=== PATIENT | female | born 1985 | race Caucasian/White ===

== ENCOUNTER 2020-07-27 23:48 | Inpatient (IN) | payer OTHER ==
[~2020-07-27] VITALS: Ht 165.1 cm; Wt 40.0 kg
[~2020-07-27 23:48] MED LIST: ALBUTEROL INH; ERY-TAB500 MG PO; IBUPROFEN 800800 M1 PO
[2020-07-27 23:50] VITALS: BP 134/87
[2020-07-28] VITALS (38 sets, daily range): BP systolic 101–158; BP diastolic 60–106
[2020-07-28 00:17] LABS: BE(vivo) -8.8 mmol/L (-2 to +3); HCO3 17.6 mmol/L (22.0-26.0); PCO2 VENOUS 39.5 mmHg (41.0-51.0); PO2 VENOUS 38.6 mmHg (35.0-45.0)
[2020-07-28 00:50] LABS: URINE BILIRUBIN NEGATIVE (Negative); URINE BLOOD 3+ (Negative); URINE CLARITY SL CLOUDY; URINE COLOR YELLOW; URINE GLUCOSE-RANDOM* 3+ (Negative); URINE KETONES 2+ (Negative); URINE LEUKOCYTES-REFLEX NEGATIVE (Negative); URINE PROTEIN (DIPSTICK) 1+ (Negative); URINE UROBILINOGEN 0.2 E.U./dl (0.2-1.0)
[2020-07-28 00:52] LABS: ABSOLUTE NEUTROPHILS 13.5 thou/uL (1.4-8.2); BASOPHILS 0.4 % (0.0-2.0); HEMATOCRIT 47.8 % (37.0-47.0); HEMOGLOBIN 15.6 gm/dL (12.0-15.0); LYMPHOCYTES 10.2 % (24.0-44.0); MCH 31.5 pg (26.0-34.0); MCHC 32.7 g/dL (28.0-37.0); MCV 96.3 fL (80.0-100.0); MONOCYTES 5.3 % (1.0-8.0); PLATELET COUNT 609 thou/uL (150-400); POLYS 84.1 % (36.0-66.0); RBC 4.96 mil/uL (4.20-5.00); RDW 13.6 % (10.5-14.5)
[2020-07-28 00:52] LABS: URINE NITRITE-REFLEX POSITIVE (Negative)
[2020-07-28 01:00] LABS: AMP/METHAMP POSITIVE (Negative); BARBITURATES Negative (Negative); BENZODIAZEPINES Negative (Negative); CASTS None Seen /LPF (None Seen); COCAINE Negative (Negative); CRYSTALS None Seen /LPF (None Seen); METHADONE Negative (Negative); MUCUS 4-6 Moderate strn/LPF (None Seen); OPIATES Negative (Negative); PCP Negative (Negative); SQUAMOUS 0-3 Few /LPF (0-3); URINE RBC 3-10 Few /HPF (0-2); URINE WBC-REFLEX 0-5 Rare /HPF (0-5)
[2020-07-28 01:01] LABS: ANION GAP 26 mmol/L (7-16); BUN 36 mg/dL (7-18); CALCIUM 11.4 mg/dL (8.5-10.1); CHLORIDE 99 mmol/L (98-107); CO2 19 mmol/L (21-32); CREATININE 1.6 mg/dL (0.6-1.0); POTASSIUM 3.8 mmol/L (3.5-5.1); SODIUM 144 mmol/L (136-145)
[2020-07-28 01:09] LABS: ALBUMIN 3.5 g/dL (3.4-5.0); AMYLASE 16 U/L (25-115); DIRECT BILIRUBIN 0.1 mg/dL (<0.1-0.2); GLUCOSE 977 mg/dL (74-106); LIPASE 71 U/L (73-393); MAGNESIUM 3.1 mg/dL (1.8-2.4); PHOSPHORUS 4.7 mg/dL (2.5-4.9); SGOT 33 U/L (15-37); SGPT 34 U/L (30-65); TOTAL BILIRUBIN 0.7 mg/dL (0.2-1.0); TOTAL PROTEIN 9.4 g/dL (6.4-8.2); TROPONIN-I <0.06 ng/mL (<0.06)
[2020-07-28 01:22] LABS: SALICYLATE 6.9 mg/dL (2.8-20.0)
--- NOTE | 2020-07-28 04:03 | NUR ---
"FRIEND" CALLED TO INQUIRE ABOUT PATIENT STATUS AND IF HE COULD BRING PATIENT ANYTHING. BRANDY PURCELL, IS FRIEND'S NAME. FRIEND WAS TOLD THAT PATIENT IS NOT IN ANY CONDIITON TO HOLD A CONVERSATION AT THIS TIME. AND HE COULD NOT BRING ANYTHING FOR THE PATIENT AT THIS TIME. ADVISED THAT ONCE PATIENT CAN SPEAK FOR HERSELF AND DESIGNATE HER ONE VISITOR DURING HER STAY, SHE WILL CALL AND LET THAT INDIVIDUAL KNOW. OTHERWISE, NO OTHER INFORMATION COULD BE DISCLOSED AT THIS TIME. BRANDY PURCELL (FRIEND): [phone] QUINTON GARCIA (FRIEND): [phone]
[2020-07-28 04:38] LABS: ALBUMIN 2.9 g/dL (3.4-5.0); CREATININE 1.2 mg/dL (0.6-1.0); MAGNESIUM 2.6 mg/dL (1.8-2.4); POTASSIUM 3.1 mmol/L (3.5-5.1)
[2020-07-28 04:44] LABS: CALCIUM 9.3 mg/dL (8.5-10.1)
--- NOTE | 2020-07-28 05:44 | NUR ---
ASSUMED CARE OF PATIENT FROM ER. PATIENT IN DKA, AMS, UNABLE TO PARTICIPATE IN ADMISSION QUESTIONS. NO FAMILY OR FRIENDS WITH HER IN ER. DKA PROTOCOL INTIATED, JANIE ROBBINS STOREPERSON CALLED WITH ABNORMAL VALUES, ORDERS RECEIVED. PATIENT REMAINS CONFUSED, GAP NOT CLOSED, HOURLY BLOOD SUGAR MONITORING. NOT PROGRESSING TOWARDS POC GOALS.
--- NOTE | 2020-07-28 07:17 | EKG ---
[address] [place] [address] ELECTROCARDIOGRAM REPORT Name: SALOMON AQUINO Room #: 246-P ADM IN M.R.#: [id number] Admission: 07/28/20 Attend Phys: Wilberto Hodge MD Discharge: Date of : 89 Report #: [id number] [facility] ED Test Date: 2020-07-28 Test Time: 00:10:02 Pat Name: SALOMON AQUINO Department: Room: 246 Gender: F Controls Designer: : 1985 Requested By: Dion Saenz Order Number: [id number] MD: Wing Maher Measurements Intervals [place] Rate: 102 P: 88 MN: 195 QRS: 89 QRSD: 68 T: -75 QT: 407 QTc: 531 Interpretive Statements Sinus tachycardia Biatrial enlargement Borderline repolarization abnormality Prolonged QT interval Baseline wander in lead(s) V1,V3,V4,V5 No previous ECG available for comparison Electronically Signed On 07-28-2020 7:17:08 [employer]PER[employer] by Wing Maher [email or web address] <ELECTRONICALLY SIGNED> By: Wing Maher MD, [facility] 07/28/20 0717 Wing Maher MD, [facility] /EPI
[2020-07-28 09:50] LABS: ALBUMIN 2.9 g/dL (3.4-5.0); CALCIUM 9.6 mg/dL (8.5-10.1); CREATININE 1.1 mg/dL (0.6-1.0); MAGNESIUM 2.5 mg/dL (1.8-2.4); PHOSPHORUS 1.9 mg/dL (2.5-4.9); POTASSIUM 3.1 mmol/L (3.5-5.1)
[2020-07-28 13:48] LABS: ALBUMIN 2.4 g/dL (3.4-5.0); CALCIUM 9.4 mg/dL (8.5-10.1); CREATININE 0.9 mg/dL (0.6-1.0); MAGNESIUM 2.3 mg/dL (1.8-2.4); PHOSPHORUS 1.5 mg/dL (2.6-4.7); POTASSIUM 3.2 mmol/L (3.5-5.1)
--- NOTE | 2020-07-28 15:56 | NUR ---
ASSUMED CARE AT 0700. ATTEMPTED TO CONTACT PATIENT'S NEXT OF KIN HOWEVER THE PHONE NUMBER ASSOCIATED WITH THE NEXT OF KIN. DID NOT WORK. RN LOOKED THROUGH CHART AND FOUND THE SAME NUMBER WHICH AGAIN DID NOT WORK. PATIENT PROGRESSING TOWARDS THE PLAN OF CARE EVIDENCED BY LAB VALUES FALLING WITHIN NORMAL RANGE.
--- NOTE | 2020-07-28 16:23 | NUR ---
Patient admits with AMS. EMS called as she was not "acting right." Patient positive drug screen. Called RN patient not alert to speak with casemgt for assessment. Noted friends phone numbers in RN notes. Updated RN of numbers which may be able to identify family, spokesperson. Casemgt following for assessment and dc planning.
[2020-07-28 17:21] LABS: ALBUMIN 2.4 g/dL (3.4-5.0); CALCIUM 9.5 mg/dL (8.5-10.1); CREATININE 0.8 mg/dL (0.6-1.0); MAGNESIUM 2.3 mg/dL (1.8-2.4); PHOSPHORUS 1.9 mg/dL (2.6-4.7); POTASSIUM 4.1 mmol/L (3.5-5.1)
[2020-07-29] VITALS (17 sets, daily range): BP systolic 102–125; BP diastolic 63–87
[2020-07-29 02:43] LABS: HEMATOCRIT 41.8 % (37.0-47.0); HEMOGLOBIN 13.8 gm/dL (12.0-15.0); MCH 31.1 pg (26.0-34.0); MCHC 33.1 g/dL (28.0-37.0); MCV 93.9 fL (80.0-100.0); RBC 4.45 mil/uL (4.20-5.00); RDW 13.8 % (10.5-14.5); WBC 16.5 thou/uL (4.0-11.0)
[2020-07-29 03:08] LABS: ALBUMIN 2.4 g/dL (3.4-5.0); CALCIUM 9.4 mg/dL (8.5-10.1); CREATININE 0.7 mg/dL (0.6-1.0); PHOSPHORUS 1.5 mg/dL (2.5-4.9); POTASSIUM 3.3 mmol/L (3.5-5.1)
[2020-07-29 07:09] LABS: ESTIMATED AVERAGE GLUCOSE > 398 mg/dL (()); GLYCOHEMOGLOBIN (HGB A1C) > 15.5 % (4.8-5.6)
--- NOTE | 2020-07-29 08:00 | NUR ---
Assummed care of the patient from the night nurse at 0700 today. Potassium infusing per protocol as serum potassium is 3.3. VSS. Patient is wanting to leave, calling her brother, Jame to bring her some breakfast.
--- NOTE | 2020-07-29 10:00 | NUR ---
Patient's brother, Jame in to visit and able to talk patient down. Patient ate well and is sleeping at the present time. Dr Mason notified of elevated blood sugar at 0850, called back, orders noted. Patient refused to have lab work drawn.
--- NOTE | 2020-07-29 12:15 | NUR ---
Patient's blood sugar elevated, call in to Dr Mason.
--- NOTE | 2020-07-29 13:00 | NUR ---
Patient states that she is leaving. Call placed to Dr Mason.
--- NOTE | 2020-07-29 13:30 | NUR ---
Dr Mason called back and informed of patient's blood sugar and that the patient is wanting to leave AMA. Orders noted. D5W turned off. Patient requesting that grewal be taken out.
--- NOTE | 2020-07-29 14:10 | NUR ---
Pate and IV x 3 dc'd. Patient informed of risk of DKA, UTI with sepesis and potential to be life threatening. Has her friend Julio on the phone who will pick her up. Patient is alert and oriented x4, able to verbalize understanding of risk of leaving, but chooses to do so. Patient dressed self without difficulty and left AMA with a steady gait.
--- NOTE | 2020-07-29 14:26 | NUR ---
ATTEMPTED TO CALL PT JEANNE CAMPOS MULTIPLE TIMES BUT EITHER NO ANSWER OR HER PHONE HAD A MEAAGE THAT IT WAS NOT ACCEPTING CALLS. LEARNED FROM PT'S RN THAT PT LEFT AMA.
== END 2020-07-29 14:10 | disposition left against medical advice (07) | DRG 637 ==
LOC: ER 23:48 → EROBS 07-28 01:25 → ICU 07-28 01:25
PROVIDERS: Emergency Medicine; Internal Medicine; Nurse Practitioner Family; ADMIT Hospitalist; ATTEND Hospitalist
DX: E10.10 Type 1 diabetes mellitus with ketoacidosis without coma (principal); E43 Unspecified severe protein-calorie malnutrition; Z68.1 Body mass index [BMI] 19.9 or less, adult; Z88.0 Allergy status to penicillin; F15.10 Other stimulant abuse, uncomplicated; R62.7 Adult failure to thrive; Z91.14 Patient's other noncompliance with medication regimen; Z53.29 Procedure and treatment not carried out because of patient's decision for other reasons; Z28.21 Immunization not carried out because of patient refusal
CPT/HCPCS: 10078